=== PATIENT | male | born 1965 | race Caucasian/White ===

== ENCOUNTER 2017-12-19 08:50 | Outpatient (CLI) | payer BC, SELFPAY ==
[2017-12-19 11:51] LABS: ALT 43 U/L (12-78); AST 30 U/L (15-37); Albumin 3.8 g/dL (3.4-5.0); Alkaline Phosphatase 75 U/L (46-116); Anion Gap 7.8 mmol/L (3-11); BUN 13 mg/dL (7-18); Bilirubin, Total 0.6 mg/dL (0.2-1.0); CO2 31.2 mmol/L (21.0-32.0); CREATININE 0.91 mg/dL (0.70-1.30); Calcium 9.1 mg/dL (8.5-10.1); Chloride 104 mmol/L (98-107); Glucose 143 mg/dL (70-100); Magnesium 1.8 mg/dL (1.8-2.4); Potassium 3.9 mmol/L (3.5-5.1); Sodium 143 mmol/L (136-145); Total Protein 6.7 g/dL (6.4-8.2)
[2017-12-19 11:59] LABS: Hemoglobin A1C 6.9 % (4.5-6.2)
== END 2017-12-19 09:10 ==
PROVIDERS: PCP Family Medicine; Visit Provider Family Medicine
DX: E11.9 Type 2 diabetes mellitus without complications (principal); I10 Essential (primary) hypertension; K21.9 Gastro-esophageal reflux disease without esophagitis
CPT/HCPCS: 36415; 80053; 83036; 83735

== ENCOUNTER 2018-02-08 09:31 | Day surgery (SDC) | payer BC, SELFPAY ==
[2018-02-08 09:32] VITALS: BP 156/94; PULSE 74; RESP 16; TEMP 36; O2SAT 97
[2018-02-08] MEDS: Lactated Ringers 1,000 ML 30 ML IV (09:56)
--- NOTE | 2018-02-08 11:25 | BOWEL_PTH ---
PATIENT: Nathan Arroyo LOC: [facility] U#:[id number] AGE/SX: 53/M ROOM: RE02/08/[address]: Arnaud Holly DO : 1965 BED: DIS: 02/08/2018 SPEC #: [id number] RECD: 02/08/18 12:55 STATUS: JOSE RENick #: [id number] CARTER: 02/08/18 11:[address]: Arnaud Holly DEPT: Surgical Specimen RECD BY: Nadine Burch ENTERED: 02/08/18 12:56 SP TYPE: Bowel OTHR DR: Marie Granado MD Tissues: 1 - BIOPSY BOWEL Procedures: GROSS AND MICRO LEVEL 4 Comments: [id number]
--- NOTE | 2018-02-08 11:42 | W.COLOREPORT ---
Date of service: 02/08/18 Time of Service: 11:00 Colonoscopy Report Date of procedure: 02/08/18 Pre-op diagnosis general: Colorectal cancer screening Post-op diagnosis procedure note: other (Rectal polyp) Procedure: Colonoscopy to the cecum with biopsy by cold snare Surgeon: Arnaud Holly Anesthesia proc note operative: MAC (Eric Moralez CRNA; ASA 2 Mallampati class II) Estimated blood loss (mL): 1 Pathology: other Complications: None Disposition: same day Indications: 53-year-old male presenting for colorectal cancer screening. He is been asymptomatic, and has no family history of colorectal cancer. The procedure has been reviewed with him, and all his questions answered to his satisfaction. Consents were obtained to proceed with colonoscopy. Prep: Miralax/Dulcolax Findings: In examining the colon from cecum to the anus, one polyp approximately 1 cm in greatest diameter was identified in the rectum and removed by cold biopsy forceps. No other abnormalities were noted of the colon, rectum, or anorectal junction Procedure Description: The patient was seen in the day surgery waiting area. His identification was confirmed, and procedure checked. He was then brought to the procedure room. Monitoring for telemetry, blood pressure, oxygen saturation, and end tidal CO2 monitoring were applied. An appropriate time out was performed to confirm, identification, allergies, medication, procedure, was performed. Sedation was titrated for affect by the FARM[employer]OPS; Once adequate sedation was achieved, I performed a inspection of the external perineum, and a digitial rectal examination. No significant external abnormalities were noted. On digital rectal examination, there was no blood, no masses, good rectal tone, and a normal prostate. I advanced the colonoscope from the anus to the cecum under direct visualization. The cecum was identified by the ileal-cecal valve, and the appendiceal orifice. The scope was then withdrawn in circumferential manner from the cecum to the rectum. No abnormalites were noted in the colon. The scope was then withdrawn into the rectum, and a single polyp was identified approximately 1 cm in greatest diameter which was subsequently removed by cold snare. The scope was then retroflexed in the rectum and no further abnormalities were noted of the rectum or anorectal junction. The scope was then withdrawn, terminating the procedure. There were no complications during the procedure, and the patient tolerated the procedure well. He was returned to the day surgery recovery area in good condition. Plan: We will await pathology before making further recommendations
[2018-02-08 12:08] VITALS: BP 105/53; PULSE 56; RESP 16; TEMP 35.7; O2SAT 99
--- NOTE | 2018-02-08 12:09 | PDOC.DSDIS_ITS ---
Discharge Plan Disposition Patient Disposition: HOME Condition: Good Discharge Details Reason For Visit: SCREENING Attending Provider: Arnaud Holly Primary Care Provider: Marie Granado Home Meds and New Rx's Prescriptions: Continue lamotrigine 25 mg tablet 50 mg PO DAILY RF: 0 omeprazole magnesium [Prilosec OTC] 20 MG tablet,delayed release (DR/EC) 1 tab PO DAILY Qty: 90 RF: 2 fluticasone 16 GM spray,suspension 2 spry NS DAILY Qty: 1 RF: 4 metformin 500 MG tablet 500 mg PO DAILY Qty: 90 RF: 4 hydrochlorothiazide 25 MG tablet 1 tab PO QAM Qty: 90 RF: 4 Rosuvastatin Calcium 40 MG tablet 40 mg PO DAILY Qty: 90 RF: 4 sertraline [Zoloft] 100 mg tablet 200 mg PO DAILY Qty: 60 RF: 12 levocarnitine HCl (bulk) [[id number]] Powder miscellaneous DAILY RF: 0 Discontinued bisacodyl [Dulcolax (bisacodyl)] 5 mg tablet,delayed release (DR/EC) 5 mg PO ONCE Qty: 4 RF: 0 polyethylene glycol 3350 [Miralax] 17 gram powder in packet 255 gm PO for colonoscopy Qty: 1 RF: 0 Discharge Instructions Instructions: Colonoscopy (DC) Stand Alone Forms: Colonoscopy Post Instructions, [place] (DSU) Activity:: Activity as Tolerated Diet:: As Tolerated Discharge Orders Discharge Orders: Discharge Order (Routine); Ordered 02/08/18 Ordered By: Arnaud Holly DS: Diagnosis Discharge Diagnosis (1) Encounter for colorectal cancer screening: Status: Acute Asessment and Plan: Colonoscopy performed Colonoscopy Report Date of procedure: 02/08/18 Pre-op diagnosis general: Colorectal cancer screening Post-op diagnosis procedure note: other (Rectal polyp) Procedure: Colonoscopy to the cecum with biopsy by cold snare Surgeon: Arnaud Holly Anesthesia proc note operative: MAC (Eric Moralez CRNA; ASA 2 Mallampati class II) Estimated blood loss (mL): 1 Pathology: other Rectal Polyp Complications: None Disposition: same day Indications: 53-year-old male presenting for colorectal cancer screening. He is been asymptomatic, and has no family history of colorectal cancer. The procedure has been reviewed with him, and all his questions answered to his satisfaction. Consents were obtained to proceed with colonoscopy. Prep: Miralax/Dulcolax Findings: In examining the colon from cecum to the anus, one polyp approximately 1 cm in greatest diameter was identified in the rectum and removed by cold biopsy forceps. No other abnormalities were noted of the colon, rectum, or anorectal junction Procedure Description: The patient was seen in the day surgery waiting area. His identification was confirmed, and procedure checked. He was then brought to the procedure room. Monitoring for telemetry, blood pressure, oxygen saturation, and end tidal CO2 monitoring were applied. An appropriate time out was performed to confirm, identification, allergies, medication, procedure, was performed. Sedation was titrated for affect by the TUBING SUPERVISOR; Once adequate sedation was achieved, I performed a inspection of the external perineum, and a digitial rectal examination. No significant external abnormalities were noted. On digital rectal examination, there was no blood, no masses, good rectal tone, and a normal prostate. I advanced the colonoscope from the anus to the cecum under direct visualization. The cecum was identified by the ileal-cecal valve, and the appendiceal orifice. The scope was then withdrawn in circumferential manner from the cecum to the rectum. No abnormalites were noted in the colon. The scope was then withdrawn into the rectum, and a single polyp was identified approximately 1 cm in greatest diameter which was subsequently removed by cold snare. The scope was then retroflexed in the rectum and no further abnormalities were noted of the rectum or anorectal junction. The scope was then withdrawn, terminating the procedure. There were no complications during the procedure, and the patient tolerated the procedure well. He was returned to the day surgery recovery area in good condition. Plan: We will await pathology before making further recommendations
== END 2018-02-08 12:17 | disposition home or self-care (01) ==
PROVIDERS: PCP Family Medicine; Visit Provider Surgery
PROC: 0DJD8ZZ Inspection of Lower Intestinal Tract, Via Natural or Artificial Opening Endoscopic (ICD-10-PCS; CPT 45378; principal; 2018-02-08 10:30)
DX: Z12.11 Encounter for screening for malignant neoplasm of colon (principal); D12.8 Benign neoplasm of rectum; E11.9 Type 2 diabetes mellitus without complications; Z79.84 Long term (current) use of oral hypoglycemic drugs; K21.9 Gastro-esophageal reflux disease without esophagitis; I10 Essential (primary) hypertension
CPT/HCPCS: 45385; 88305

== ENCOUNTER 2018-02-28 23:47 | Inpatient (IN) | payer BC, SELFPAY ==
[2018-02-28 23:54] VITALS: O2SAT 99
[2018-02-28 23:56] VITALS: BP 143/92; PULSE 68; RESP 18; TEMP 34.7; O2SAT 99
[2018-03-01] VITALS (90 sets, daily range): BP systolic 86–153; BP diastolic 45–79; PULSE 61–82; RESP 8–28; TEMP 35.3–37.1; O2SAT 88–100
--- NOTE | 2018-03-01 00:10 | W.ED.GENAD ---
Discharge Plan Disposition Patient Disposition: [facility] INPATIENT Condition: Good Discharge Details Chief Complaint: Dizzy/Sync Clinical Impression: Hypotension, Hypothermia, Lactic acidosis Reason For Visit: CLARITZA Primary Care Provider: Marie Granado ED Provider: Car Mcdonald [place] Meds and New Rx's Prescriptions: No Action lamotrigine 25 mg tablet 50 mg PO DAILY RF: 0 levomefolate calcium [L-Methylfolate] 15 mg tablet 15 mg PO DAILY RF: 0 omeprazole magnesium [Prilosec OTC] 20 MG tablet,delayed release (DR/EC) 1 tab PO DAILY Qty: 90 RF: 2 fluticasone 16 GM spray,suspension 2 spry NS DAILY Qty: 1 RF: 4 metformin 500 MG tablet 500 mg PO DAILY Qty: 90 RF: 4 hydrochlorothiazide 25 MG tablet 1 tab PO QAM Qty: 90 RF: 4 Rosuvastatin Calcium 40 MG tablet 40 mg PO DAILY Qty: 90 RF: 4 sertraline [Zoloft] 100 mg tablet 200 mg PO DAILY Qty: 60 RF: 12 Medical Decision Making Patient arrives here hypothermic. Saturations are normal. Blood pressure initially reported as in the 90s now in the 140 range. He has a nonfocal neurologic exam. He has no complaints of pain. He started having shakes here. Given his low blood pressure and low temperature with feeling of dizziness and weakness for most of his shift I am suspecting sepsis. Second line was started here. We will give him a liter of saline and then switch him to LR. Blood cultures, lactic acid, laboratory studies including troponin ordered. Chest x-ray and urinalysis ordered. EKG obtained. Patient's laboratory studies show a white count of 12 with no shift. Chemistry significant for potassium was 3.1 and a magnesium of 1.7, both of which were replenished intravenously. Lactic acid was elevated to 5. Anion gap elevated to 15.5. Glucose a little elevated at 238. Troponin negative. Chest x-ray negative. Blood cultures are done. Urine just obtained and a gram of ceftriaxone given. He has not had any further hypotensive events. His temperatures come up to 97.6. Case discussed with hospitalist for admission. He is hemodynamically stable. I am continuing him on fluids. Ceftriaxone is ordered. Currently stable. Lab Data Lab results reviewed: Yes I reviewed the patient's lab results. ECG Data Attestation: I personally reviewed and interpreted this ECG (s) as follows: Interpretation: Normal sinus rhythm at 67. Normal axis and intervals. Normal ST segments. HPI General Mode of arrival: EMS. Date/Time Provider Initiated Documentation: 03/01/18 00:10. Limitations to Documentation: no limitations. Information obtained by: patient and EMS. 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 He abruptly became dizzy at the station and went into the bathroom where he proceeded to vomit multiple times. He did not pass out. He is extremely diaphoretic and weak. He has no headache, neck pain, chest pain, chest heaviness, abdominal pain. He has no cough, runny nose, body aches. He has no shortness of breath. While he did describe dizziness/vertigo he was able to ambulate. He had no neurologic symptoms. He no longer feels dizzy. His colleagues started an IV because he was hypotensive. He received some oral Zofran. He was transported here for further evaluation. Related Data Home Medications Medication Instructions Recorded Confirmed omeprazole magnesium [Prilosec OTC] 1 tab PO DAILY #90 tab-cap 07/20/16 02/20/18 fluticasone 2 spry NS DAILY #1 script 06/20/17 02/20/18 metformin 500 mg PO DAILY #90 tab-cap 09/11/17 02/20/18 hydrochlorothiazide 1 tab PO QAM #90 tab 10/03/17 02/20/18 sertraline 100 mg tablet 200 mg PO DAILY #60 tab-cap 11/28/17 02/20/18 lamotrigine 25 mg tablet 50 mg PO DAILY tab 01/23/18 02/20/18 levomefolate calcium 15 mg tablet 15 mg PO DAILY 02/20/18 02/20/18 Previous Rx's Medication Instructions Recorded fluticasone 2 spry NS DAILY #1 script 06/20/17 metformin 500 mg PO DAILY #90 tab-cap 09/11/17 hydrochlorothiazide 1 tab PO QAM #90 tab 10/03/17 sertraline 100 mg tablet 200 mg PO DAILY #60 tab-cap 11/28/17 Allergies Allergy/AdvReac Type Severity Reaction Status Date / Time No Known Allergies Allergy Verified 03/01/18 00:01 General Stated Complaint: Dizzy/Sync VAUGHN: 2 Review of Systems Constitutional Denies chills, Reports excessive sweating, Denies fatigue, Denies fever(s), Denies headache(s), Denies lethargy, Reports malaise and Reports weakness Eyes Denies change in vision, Denies diplopia and Denies loss of vision ENT Reports dizziness, Denies otalgia, Denies headache(s), Denies nasal congestion, Denies nasal discharge, Denies neck pain, Denies sinus pain, Denies sinus pressure and Denies sore throat Cardiovascular Denies chest pain, Reports diaphoresis, Denies syncope, Denies rapid heart rate, Denies edema, Denies leg edema, Reports lightheadedness and Denies dyspnea Respiratory Denies cough and Denies dyspnea Gastrointestinal Denies abdominal pain, Denies hematochezia, Denies diarrhea, Reports nausea, Reports vomiting and Denies hematemesis Genitourinary Denies hematuria, Denies dysuria and Denies flank pain Musculoskeletal Denies back pain, Denies myalgias, Denies arthralgias, Denies neck pain and Denies numbness Integumentary/Breasts Denies erythema, Denies rash and Denies wounds Neurologic Denies abnormal speech, Denies confusion, Reports dizziness, Denies syncope, Denies headache(s), Denies focal weakness, Denies loss of vision, Denies numbness, Denies paresthesias and Reports weakness Psychiatric Denies confusion Endocrine Reports excessive sweating and Denies fatigue [facility] Medical History Tubular adenoma of colon (Resolved) Depression (Chronic) DM (diabetes mellitus) Essential hypertension GERD (gastroesophageal reflux disease) Surgical History H/O colonoscopy (Resolved 02/08/18) Endoscopic Ethmoid (A&P) (~2003) Vasectomy Family History Mother Personal history of malignant neoplasm Mental disorder Father Diabetes Essential hypertension Personal history of malignant neoplasm Heart disease Hyperlipidemia Stroke Sister No problems noted. 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 pets and animals: cat(s) Smoking/Tobacco Use Status: Former Tobacco Use quit date: 03/12/87 passive smoking exposure: No alcohol intake: current alcohol intake frequency: 0-2 drinks per day Exam Const General: cooperative, no acute distress and ill appearing Orientation: alert and oriented x3 HENMT Head: normocephalic and atraumatic Mouth: moist mucous membranes Eyes Conjunctivae: conjunctivae normal Neck Neck: trachea midline and supple Resp Effort & Inspection: normal respiratory effort Auscultation: clear to auscultation bilaterally Cardio Rate: regular rate Rhythm: regular rhythm Heart Sounds: S1 normal and S2 normal GI Palpation: soft, not firm, no guarding and nontender Skin General skin exam: no rashes or lesions noted and no erythema Neuro General: alert, awake, oriented x3, no focal motor deficits and CN's II-XI intact bilaterally Extrem General: normal to inspection and no clubbing, cyanosis or edema Course Vital Signs Temperature 94.5 F L 02/28/18 23:56 Pulse 68 02/28/18 23:56 Respiratory Rate 18 02/28/18 23:56 Blood Pressure 143/92 H 02/28/18 23:56 Pulse Oximetry 99 02/28/18 23:56 Temperature 94.5 F L 02/28/18 23:56 Temperature Source Oral 02/28/18 23:56 Pulse 68 02/28/18 23:56 Respiratory Rate 18 03/01/18 00:02 Respiratory Effort Non-Labored 03/01/18 00:02 Respiratory Depth Normal 03/01/18 00:02 Respiratory Pattern Normal 03/01/18 00:02 Blood Pressure 143/92 H 02/28/18 23:56 Blood Pressure Position Sitting 02/28/18 23:56 Pulse Oximetry 99 02/28/18 23:56 Oxygen Delivery Method Room Air 02/28/18 23:56 Oxygen Flow Rate 0 02/28/18 23:56 Pain Level 0 02/28/18 23:56 Lab/Test Results Lab/Test Results: 03/01/18 00:04 Blood Blood Culture - Pending 03/01/18 00:04 Blood Blood Culture - Pending
[2018-03-01] MEDS: Normal Saline 1,000 ML 1000 ML IV (00:14)
[2018-03-01] MEDS: Normal Saline Flush 10 ML SYR IVP (00:15)
[2018-03-01 00:19] LABS: Lactate-non-spesis 4.9 mmol/L (0.6-1.4)
[2018-03-01 00:21] LABS: Abs Immature Grans 0.05 k/cumm (0.0-0.09); Absolute Basophil Count 0.02 k/cumm (0.0-0.2); Absolute Eosinophil Count 0.07 k/cumm (0.0-0.7); Absolute Lymphocyte Count 1.54 k/cumm (1.2-3.4); Absolute Monocyte Count 0.86 k/cumm (0.11-0.7); Absolute Neutrophil Count 9.24 k/cumm (1.2-6.7); Basophils % 0.2; Eosinophils % 0.6; HCT 43.8 % (40.0-50.0); HGB 15.1 g/dL (13.5-17.5); Immature Grans % 0.4; Lymphocytes % 13.1; Mean Corp. HGB Concentration 34.5 g/dL (32.0-36.0); Mean Corpuscular Volume 84.2 fL (80-95); Mean Platelet Volume 10.5 fL (8.0-11.0); Monocytes % 7.3; Neutrophils % 78.4; Platelet Count 211 x1000/uL (130-400); RBC Distribution Width 13.1 % (11.8-14.1); White Blood Cell Count 11.78 k/cumm (4.4-10.8)
--- NOTE | 2018-03-01 00:24 | ED.GENADUL_ITS ---
Discharge Plan Disposition Patient Disposition: [facility] INPATIENT Condition: Good Discharge Details Chief Complaint: Dizzy/Sync Clinical Impression: Hypotension, Hypothermia, Lactic acidosis Reason For Visit: CLARITZA Primary Care Provider: Marie Granado ED Provider: Car Mcdonald [place] Meds and New Rx's Prescriptions: No Action lamotrigine 25 mg tablet 50 mg PO DAILY RF: 0 levomefolate calcium [L-Methylfolate] 15 mg tablet 15 mg PO DAILY RF: 0 omeprazole magnesium [Prilosec OTC] 20 MG tablet,delayed release (DR/EC) 1 tab PO DAILY Qty: 90 RF: 2 fluticasone 16 GM spray,suspension 2 spry NS DAILY Qty: 1 RF: 4 metformin 500 MG tablet 500 mg PO DAILY Qty: 90 RF: 4 hydrochlorothiazide 25 MG tablet 1 tab PO QAM Qty: 90 RF: 4 Rosuvastatin Calcium 40 MG tablet 40 mg PO DAILY Qty: 90 RF: 4 sertraline [Zoloft] 100 mg tablet 200 mg PO DAILY Qty: 60 RF: 12 Medical Decision Making Patient arrives here hypothermic. Saturations are normal. Blood pressure initially reported as in the 90s now in the 140 range. He has a nonfocal neurologic exam. He has no complaints of pain. He started having shakes here. Given his low blood pressure and low temperature with feeling of dizziness and weakness for most of his shift I am suspecting sepsis. Second line was started here. We will give him a liter of saline and then switch him to LR. Blood cultures, lactic acid, laboratory studies including troponin ordered. Chest x- ray and urinalysis ordered. EKG obtained. Patient's laboratory studies show a white count of 12 with no shift. Chemistry significant for potassium was 3.1 and a magnesium of 1.7, both of which were replenished intravenously. Lactic acid was elevated to 5. Anion gap elevated to 15.5. Glucose a little elevated at 238. Troponin negative. Chest x-ray negative. Blood cultures are done. Urine just obtained and a gram of ceftriaxone given. He has not had any further hypotensive events. His temperatures come up to 97.6. Case discussed with hospitalist for admission. He is hemodynamically stable. I am continuing him on fluids. Ceftriaxone is ordered. Currently stable. Lab Data Lab results reviewed: Yes I reviewed the patient's lab results. ECG Data Attestation: I personally reviewed and interpreted this ECG (s) as follows: Interpretation: Normal sinus rhythm at 67. Normal axis and intervals. Normal ST segments. HPI General Mode of arrival: EMS . Date/Time Provider Initiated Documentation: 03/01/18 00:10 . Limitations to Documentation: no limitations . Information obtained by: patient and EMS . 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 He abruptly became dizzy at the station and went into the bathroom where he proceeded to vomit multiple times. He did not pass out. He is extremely diaphoretic and weak. He has no headache, neck pain, chest pain, chest heaviness, abdominal pain. He has no cough, runny nose, body aches. He has no shortness of breath. While he did describe dizziness/vertigo he was able to ambulate. He had no neurologic symptoms. He no longer feels dizzy. His colleagues started an IV because he was hypotensive. He received some oral Zofran. He was transported here for further evaluation. Related Data Home Medications Medication Instructions Recorded Confirmed omeprazole magnesium [Prilosec OTC] 1 tab PO DAILY #90 tab-cap 07/20/16 02/20/18 fluticasone 2 spry NS DAILY #1 script 06/20/17 02/20/18 metformin 500 mg PO DAILY #90 tab-cap 09/11/17 02/20/18 hydrochlorothiazide 1 tab PO QAM #90 tab 10/03/17 02/20/18 sertraline 100 mg tablet 200 mg PO DAILY #60 tab-cap 11/28/17 02/20/18 lamotrigine 25 mg tablet 50 mg PO DAILY tab 01/23/18 02/20/18 levomefolate calcium 15 mg tablet 15 mg PO DAILY 02/20/18 02/20/18 Previous Rx's Medication Instructions Recorded fluticasone 2 spry NS DAILY #1 script 06/20/17 metformin 500 mg PO DAILY #90 tab-cap 09/11/17 hydrochlorothiazide 1 tab PO QAM #90 tab 10/03/17 sertraline 100 mg tablet 200 mg PO DAILY #60 tab-cap 11/28/17 Allergies Allergy/AdvReac Type Severity Reaction Status Date / Time No Known Allergies Allergy Verified 03/01/18 00:01 General Stated Complaint: Dizzy/Sync VAUGHN: 2 Review of Systems Constitutional Denies chills, Reports excessive sweating, Denies fatigue, Denies fever(s), Denies headache(s), Denies lethargy, Reports malaise and Reports weakness Eyes Denies change in vision, Denies diplopia and Denies loss of vision ENT Reports dizziness, Denies otalgia, Denies headache(s), Denies nasal congestion, Denies nasal discharge, Denies neck pain, Denies sinus pain, Denies sinus pressure and Denies sore throat Cardiovascular Denies chest pain, Reports diaphoresis, Denies syncope, Denies rapid heart rate, Denies edema, Denies leg edema, Reports lightheadedness and Denies dyspnea Respiratory Denies cough and Denies dyspnea Gastrointestinal Denies abdominal pain, Denies hematochezia, Denies diarrhea, Reports nausea, Reports vomiting and Denies hematemesis Genitourinary Denies hematuria, Denies dysuria and Denies flank pain Musculoskeletal Denies back pain, Denies myalgias, Denies arthralgias, Denies neck pain and Denies numbness Integumentary/Breasts Denies erythema, Denies rash and Denies wounds Neurologic Denies abnormal speech, Denies confusion, Reports dizziness, Denies syncope, Den ies headache(s), Denies focal weakness, Denies loss of vision, Denies numbness, Denies paresthesias and Reports weakness Psychiatric Denies confusion Endocrine Reports excessive sweating and Denies fatigue [facility] Medical History Tubular adenoma of colon (Resolved) Depression (Chronic) DM (diabetes mellitus) Essential hypertension GERD (gastroesophageal reflux disease) Surgical History H/O colonoscopy (Resolved 02/08/18) Endoscopic Ethmoid (A&P) (~2003) Vasectomy Family History Mother Personal history of malignant neoplasm Mental disorder Father Diabetes Essential hypertension Personal history of malignant neoplasm Heart disease Hyperlipidemia Stroke Sister No problems noted. 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 pets and animals: cat(s) Smoking/Tobacco Use Status: Former Tobacco Use quit date: 03/12/87 passive smoking exposure: No alcohol intake: current alcohol intake frequency: 0-2 drinks per day Exam Const General: cooperative, no acute distress and ill appearing Orientation: alert and oriented x3 HENMT Head: normocephalic and atraumatic Mouth: moist mucous membranes Eyes Conjunctivae: conjunctivae normal Neck Neck: trachea midline and supple Resp Effort & Inspection: normal respiratory effort Auscultation: clear to auscultation bilaterally Cardio Rate: regular rate Rhythm: regular rhythm Heart Sounds: S1 normal and S2 normal GI Palpation: soft, not firm, no guarding and nontender Skin General skin exam: no rashes or lesions noted and no erythema Neuro General: alert, awake, oriented x3, no focal motor deficits and CN's II-XI intact bilaterally Extrem General: normal to inspection and no clubbing, cyanosis or edema Course Vital Signs Temperature 94.5 F L 02/28/18 23:56 Pulse 68 02/28/18 23:56 Respiratory Rate 18 02/28/18 23:56 Blood Pressure 143/92 H 02/28/18 23:56 Pulse Oximetry 99 02/28/18 23:56 Temperature 94.5 F L 02/28/18 23:56 Temperature Source Oral 02/28/18 23:56 Pulse 68 02/28/18 23:56 Respiratory Rate 18 03/01/18 00:02 Respiratory Effort Non-Labored 03/01/18 00:02 Respiratory Depth Normal 03/01/18 00:02 Respiratory Pattern Normal 03/01/18 00:02 Blood Pressure 143/92 H 02/28/18 23:56 Blood Pressure Position Sitting 02/28/18 23:56 Pulse Oximetry 99 02/28/18 23:56 Oxygen Delivery Method Room Air 02/28/18 23:56 Oxygen Flow Rate 0 02/28/18 23:56 Pain Level 0 02/28/18 23:56 Lab/Test Results Lab/Test Results: 03/01/18 00:04 Blood Blood Culture - Pending 03/01/18 00:04 Blood Blood Culture - Pending
--- NOTE | 2018-03-01 00:35 | DI.RAD_ITS ---
SYMPTOM/DIAGNOSIS: WEAKNESS PA AND LATERAL CHEST: The lungs are well expanded and free of infiltrate. No pleural effusion. The heart is not enlarged. The hilar structures, mediastinum and tracheal air column are clear. SUMMARY: No evidence of acute cardiopulmonary disease.
[2018-03-01 00:39] LABS: ALT 53 U/L (12-78); AST 34 U/L (15-37); Albumin 4.4 g/dL (3.4-5.0); Alkaline Phosphatase 87 U/L (46-116); Anion Gap 15.5 mmol/L (3-11); BUN 17 mg/dL (7-18); Bilirubin, Total 0.6 mg/dL (0.2-1.0); CO2 25.5 mmol/L (21.0-32.0); CREATININE 1.24 mg/dL (0.70-1.30); Calcium 9.5 mg/dL (8.5-10.1); Chloride 100 mmol/L (98-107); Glucose 238 mg/dL (70-100); Magnesium 1.7 mg/dL (1.8-2.4); Potassium 3.1 mmol/L (3.5-5.1); Sodium 141 mmol/L (136-145); Total Protein 7.7 g/dL (6.4-8.2)
[2018-03-01 00:44] LABS: Troponin I < 0.02 ng/mL (0.00-0.06)
[2018-03-01] MEDS: Lactated Ringers 1,000 ML 200 ML IV (00:53)
--- NOTE | 2018-03-01 01:00 | DI.VRAD_ITS ---
EXAM: XR Chest, 2 Views EXAM DATE/TIME: 03/01/2018 12:09 AM CLINICAL HISTORY: 53 years old, male; Signs and symptoms; Other: Weakness, dizzy TECHNIQUE: XR of the chest, 2 views. COMPARISON: No relevant prior studies available. FINDINGS: Lungs: Low lung volumes. No airspace consolidation. Pleural space: No pleural effusion. No pneumothorax. Heart/Mediastinum: No cardiomegaly. Bones/joints: No acute fracture. IMPRESSION: No acute cardiopulmonary pathology. Dictated and Authenticated by: Fany Landeros MD. Ordering:RAYRAY Yoon MD
[2018-03-01] MEDS: MAGNESIUM SULFATE 2 GM/50 ML BAG IVPB (02:03)
[2018-03-01] MEDS: POTASSIUM CHLORIDE 10 MEQ/100 ML BAG 100 MEQ IVPB (02:04)
[2018-03-01 02:45] LABS: Bilirubin Negative (Negative); Blood Negative (Negative); Clarity Clear; Glucose 250 mg/dL (Negative); Ketones 40 mg/dL (Negative); Leukocyte Esterase Negative (Negative); Nitrite Negative (Negative); Specific Gravity 1.025 (1.005-1.025); Urobilinogen 0.2 EU/dL (Up TO 0.2)
--- NOTE | 2018-03-01 03:25 | W.PM.HP.N ---
Date of service: 03/01/18 Time of Service: 03:25 Assessment and Plan (1) Dizziness: Current visit: Yes Status: Acute Constellation of symptoms that include sudden onset vertigo, nausea with vomiting, and overall malaise in patient found to be hypothermic and hypotensive, with significant elevation in lactate. Possibility does exist for potential Sirs/sepsis, albeit without a known source currently. Chest x-ray and urinalysis both appeared to be without acute infectious pathology, and the patient has no localizing symptoms by history or physical exam. He has received aggressive IV fluids and a dose of ceftriaxone in the emergency department. For now will hold antibiotic therapy and monitor patient's symptoms, vitals, and culture results very closely. Mr. Arroyo also has evidence of a significant elevation in lactate, as well as an elevated anion gap, but with a normal chloride, bicarb, and sodium levels. While his glucose is elevated it is not grossly so. His urine does show mild elevation in ketones. For now continue aggressive fluid resuscitation, check ABG, and repeat morning labs. Maintain on sliding scale insulin coverage. EKG also checked and does not appear to be ischemic, with a negative troponin which will be repeated in the morning as well. Please note that the patient is also on metformin, and while technically possible to develop lactic acidosis from metformin it is highly unlikely as he is on a very low dose of this medication, and has no concurrent impairment in liver or renal function, or significant alcohol abuse by history. Regardless, metformin will be held as well. (2) Type 2 diabetes mellitus without complication, without long-term current use of insulin: Current visit: No Status: Chronic Hold metformin, initiate sliding scale coverage, ADA diet. (3) Hypercholesterolemia: Current visit: No Status: Chronic Continue home statin therapy. (4) Gastroesophageal reflux disease with esophagitis: Current visit: No Status: Chronic Continue PPI therapy. (5) DVT prophylaxis: Current visit: Yes Status: Acute SC Lovenox. History of Present Illness Chief Complaint: Dizziness Narrative: 53-year-old gentleman with a past medical history significant for diabetes presents to [facility] emergency department with complaints of dizziness. Mr. Arroyo has a prior medical history significant for diabetes, hypertension, dyslipidemia, GERD, and depression. 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 He reports that approximately 9 PM he had rather acute onset of malaise, with symptoms that included vertigo, nausea, and vomiting. He was noted to be ill-appearing as he was in the emergency department earlier, having just transported a patient there. He later presented for evaluation as he was feeling worse, and was again found to be rather ill appearing with pallor and rigors. Further evaluation noted hypothermia, and although not recorded he also reportedly had low blood pressures that responded to IV fluids. Lab work showed a mild leukocytosis without any bandemia, but with a significant elevation in his lactate at 4.9. His chest x-ray, urinalysis, and remainder of his lab work were essentially unremarkable. Given patient's hypothermia, hypotension, and markedly elevated lactate he was referred for admission for further evaluation and treatment. Review of Systems Review of Systems All systems reviewed & are unremarkable except as noted in HPI and below and Unobtainable due to (Specifically denies any fevers, chills, dysuria, urinary frequency, pyuria,) [facility] Medical History Tubular adenoma of colon (Chronic) Depression (Chronic) DM (diabetes mellitus) Essential hypertension GERD (gastroesophageal reflux disease) Surgical History H/O colonoscopy (Resolved 02/08/18) Endoscopic Ethmoid (A&P) (~2003) Vasectomy Family History Mother Personal history of malignant neoplasm Mental disorder Father Diabetes Essential hypertension Personal history of malignant neoplasm Heart disease Hyperlipidemia Stroke Sister No problems noted. 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 Quit tobacco 21 years ago. Reports 2 drinks approximately 3 times per week. Denies any illicit drug use. Meds Home Medications Medication Instructions Recorded Confirmed Type omeprazole magnesium [Prilosec OTC] 1 tab PO DAILY #90 tab-cap 07/20/16 02/20/18 History fluticasone 2 spry NS DAILY #1 script 06/20/17 02/20/18 Rx metformin 500 mg PO DAILY #90 tab-cap 09/11/17 02/20/18 Rx Rosuvastatin Calcium 40 mg PO DAILY #90 tab-cap 10/03/17 02/20/18 Clinic hydrochlorothiazide 1 tab PO QAM #90 tab 10/03/17 02/20/18 Rx sertraline 100 mg tablet 200 mg PO DAILY #60 tab-cap 11/28/17 02/20/18 Rx lamotrigine 25 mg tablet 50 mg PO DAILY tab 01/23/18 02/20/18 History levomefolate calcium 15 mg tablet 15 mg PO DAILY 02/20/18 02/20/18 History Allergies Allergy/AdvReac Type Severity Reaction Status Date / Time No Known Allergies Allergy Verified 03/01/18 03:25 Exam Narrative Exam Narrative: General: Patient is ill appearing but not toxic - apparently improved since presentation, AAOX3, NAD Neck: Supple CV: Regular, nontachycardic, S1S2, No rubs, murmurs, or gallops. Pulmonary: Clear to auscultation bilaterally, no crackles, wheezing, or rhonchi Abdomen: + Bowel Sounds, soft, nontender, nondistended Vascular: No lower extremity edema Neurologic: CN II-XII grossly intact. No focal deficits. Psych: Normal mood and affect. Results Imaging Additional studies: Exam(s) EXAM: XR Chest, 2 Views EXAM DATE/TIME: 03/01/2018 12:09 AM CLINICAL HISTORY: 53 years old, male; Signs and symptoms; Other: Weakness, dizzy TECHNIQUE: XR of the chest, 2 views. COMPARISON: No relevant prior studies available. FINDINGS: Lungs: Low lung volumes. No airspace consolidation. Pleural space: No pleural effusion. No pneumothorax. Heart/Mediastinum: No cardiomegaly. Bones/joints: No acute fracture. IMPRESSION: No acute cardiopulmonary pathology. Labs : 03/01/18 00:10 03/01/18 00:10 Laboratory Results - last 24 hr 03/01/18 03/01/18 03/01/18 00:10 00:10 00:10 WBC 11.78 H RBC 5.20 Hgb 15.1 Hct 43.8 MCV 84.2 MCH 29.0 MCHC 34.5 RDW 13.1 Plt Count 211 MPV 10.5 Immature Gran % 0.4 Neutrophils % 78.4 Lymphocytes % 13.1 Monocytes % 7.3 Eosinophils % 0.6 Basophils % 0.2 Absolute Neutrophils 9.24 H Absolute Lymphocytes 1.54 Absolute Monocytes 0.86 H Absolute Eosinophils 0.07 Absolute Basophils 0.02 Sodium 141 Potassium 3.1 L Chloride 100 Carbon Dioxide 25.5 Anion Gap 15.5 H BUN 17 Creatinine 1.24 Estimated GFR/1.73 m2 >= 60.00 Glucose 238 H Lactate 4.9 H Calcium 9.5 Magnesium 1.7 L Total Bilirubin 0.6 AST 34 ALT 53 Alkaline Phosphatase 87 Troponin I < 0.02 Total Protein 7.7 Albumin 4.4 Urine Color Urine Clarity Urine pH Ur Specific [place] Urine Protein Urine Ketones Urine Blood Urine Nitrite Urine Bilirubin Urine Urobilinogen Ur Leukocyte Esterase Urine Glucose 03/01/18 02:30 WBC RBC Hgb Hct MCV MCH MCHC RDW Plt Count MPV Immature Gran % Neutrophils % Lymphocytes % Monocytes % Eosinophils % Basophils % Absolute Neutrophils Absolute Lymphocytes Absolute Monocytes Absolute Eosinophils Absolute Basophils Sodium Potassium Chloride Carbon Dioxide Anion Gap BUN Creatinine Estimated GFR/1.73 m2 Glucose Lactate Calcium Magnesium Total Bilirubin AST ALT Alkaline Phosphatase Troponin I Total Protein Albumin Urine Color Yellow Urine Clarity Clear Urine pH 6.0 Ur Specific [place] 1.025 Urine Protein Negative Urine Ketones 40 H Urine Blood Negative Urine Nitrite Negative Urine Bilirubin Negative Urine Urobilinogen 0.2 Ur Leukocyte Esterase Negative Urine Glucose 250 H Last Vital Signs Temp 34.7 C L 02/28/18 23:56 Pulse 68 02/28/18 23:56 Resp 18 03/01/18 00:02 BP 143/92 H 02/28/18 23:56 Pulse Ox 99 02/28/18 23:56
[2018-03-01] MEDS: Normal Saline 1,000 ML 200 ML IV ×2 (05:00→09:49)
[2018-03-01] MEDS: Magnesium Oxide 400 MG TAB PO (05:20)
[2018-03-01] MEDS: Potassium Chloride 20 MEQ TABCR 40 MEQ PO (05:21)
[2018-03-01] MEDS: Enoxaparin 40 MG/0.4 ML SYR SC (05:21)
[2018-03-01 06:46] LABS: Lactate-non-spesis 1.7 mmol/L (0.6-1.4)
[2018-03-01 06:50] LABS: Abs Immature Grans 0.03 k/cumm (0.0-0.09); Absolute Basophil Count 0.04 k/cumm (0.0-0.2); Absolute Eosinophil Count 0.01 k/cumm (0.0-0.7); Absolute Lymphocyte Count 1.13 k/cumm (1.2-3.4); Absolute Monocyte Count 0.83 k/cumm (0.11-0.7); Absolute Neutrophil Count 7.81 k/cumm (1.2-6.7); Basophils % 0.4; Eosinophils % 0.1; HCT 38.5 % (40.0-50.0); HGB 13.3 g/dL (13.5-17.5); Immature Grans % 0.3; Lymphocytes % 11.5; Mean Corp. HGB Concentration 34.5 g/dL (32.0-36.0); Mean Corpuscular Hemoglobin 29.2 pg (27.0-33.0); Mean Corpuscular Volume 84.6 fL (80-95); Mean Platelet Volume 10.4 fL (8.0-11.0); Monocytes % 8.4; Neutrophils % 79.3; Platelet Count 190 x1000/uL (130-400); RBC 4.55 m/cumm (4.50-6.00); RBC Distribution Width 13.3 % (11.8-14.1); White Blood Cell Count 9.85 k/cumm (4.4-10.8)
[2018-03-01 07:08] LABS: Anion Gap 7.8 mmol/L (3-11); BUN 13 mg/dL (7-18); CO2 29.2 mmol/L (21.0-32.0); CREATININE 0.91 mg/dL (0.70-1.30); Calcium 8.2 mg/dL (8.5-10.1); Chloride 104 mmol/L (98-107); Glucose 155 mg/dL (70-100); Potassium 3.7 mmol/L (3.5-5.1); Sodium 141 mmol/L (136-145)
[2018-03-01 07:12] LABS: Troponin I < 0.02 ng/mL (0.00-0.06)
[2018-03-01] MEDS: Omeprazole 20 MG CAPCR PO (08:05)
[2018-03-01] MEDS: lamoTRIgine 25 MG TAB 50 MG PO (09:17)
[2018-03-01] MEDS: Sertraline 50 MG TAB 200 MG PO (09:17)
[2018-03-01] MEDS: Insulin Aspart 300 UNITS/3 ML PEN SC (12:23)
--- NOTE | 2018-03-01 12:42 | PDOC.CMIN ---
- If Service Date Differs Date of service: 03/01/18 Time of Service: 12:42 Care Management Initial Assess REASON FOR HOSPITALIZATION:: Dizziness PAST MEDICAL HISTORY/PAST SURGICAL HISTORY:: Tublar adenoma of the colon, type 2 DM, low back pain, hyperchoesterolemia, GERD, HTN, Depression PREVIOUS FUNCTIONAL STATUS/SOCIAL/FAMILY SUPPORTS:: Nathan lives at home independently in [place], [place]. He is seperated from his spouse they do live in the same home. Nathan works fulltime at [employer]. His children are grown and supportive per his report. He states he is independent with ADL's and transportation. He has many hobbies he likes to do around home. CURRENT FUNCTIONAL STATUS:: Nathan is alert and engaged. He is able to recall events that led to admission. He reports that he is a DM he does not check it blood sugar at home he does have his A1c per his report checked every 3 months. ADVANCE DIRECTIVES:: None on file at [facility] offered packet Has patient been provided with information about the portal?: Yes Did the patient sign up for the portal?: No CODE STATUS:: Full Code INSURANCE COVERAGE / FINANCIAL ISSUES:: BCBS CURRENT HOME/COMMUNITY SERVICES/EQUIPMENT:: None at this time PRIMARY CARE PHYSICIAN:: POTENTIAL DISCHARGE NEEDS:: Follow up appointment with primary care provider scheduled prior to discharge PATIENT/FAMILY EDUCATION NEEDS:: Discharge plan of care, limitations and follow up plan of care including ask me three and self management. CM provided education realated to DM and follow up with primary care r/t ongoing DM management. ANTICIPATED BARRIERS TO DISCHARGE:: None identified at this time. TRANSPORTATION:: Via private car wtih his daughter at time of discharge. PLAN:: Nathan will be discharged home when medically ready per provider. Anticipate no addtional services at time of discharge. CM to continue to provide support to patient discharge planning.
--- NOTE | 2018-03-01 12:52 | INITIAL_ITS ---
- If Service Date Differs Date of service: 03/01/18 Time of Service: 12:42 Care Management Initial Assess REASON FOR HOSPITALIZATION:: Dizziness PAST MEDICAL HISTORY/PAST SURGICAL HISTORY:: Tublar adenoma of the colon, type 2 DM, low back pain, hyperchoesterolemia, GERD, HTN, Depression PREVIOUS FUNCTIONAL STATUS/SOCIAL/FAMILY SUPPORTS:: Nathan lives at home independently in [place], [place]. He is seperated from his spouse they do live in the same home. Nathan works fulltime at [employer]. His children are grown and supportive per his report. He states he is independent with ADL's and transportation. He has many hobbies he likes to do around home. CURRENT FUNCTIONAL STATUS:: Nathan is alert and engaged. He is able to recall events that led to admission. He reports that he is a DM he does not check it blood sugar at home he does have his A1c per his report checked every 3 months. ADVANCE DIRECTIVES:: None on file at [facility] offered packet Has patient been provided with information about the portal?: Yes Did the patient sign up for the portal?: No CODE STATUS:: Full Code INSURANCE COVERAGE / FINANCIAL ISSUES:: BCBS CURRENT HOME/COMMUNITY SERVICES/EQUIPMENT:: None at this time PRIMARY CARE PHYSICIAN:: POTENTIAL DISCHARGE NEEDS:: Follow up appointment with primary care provider scheduled prior to discharge PATIENT/FAMILY EDUCATION NEEDS:: Discharge plan of care, limitations and follow up plan of care including ask me three and self management. CM provided education realated to DM and follow up with primary care r/t ongoing DM management. ANTICIPATED BARRIERS TO DISCHARGE:: None identified at this time. TRANSPORTATION:: Via private car wtih his daughter at time of discharge. PLAN:: Nathan will be discharged home when medically ready per provider. Anticipate no addtional services at time of discharge. CM to continue to provide support to patient discharge planning.
--- NOTE | 2018-03-01 14:58 | W.PM.DS.N ---
Date of service: 03/01/18 Time of Service: 15:06 DS: Diagnosis Discharge Diagnosis (1) Vomiting and diarrhea: Status: Resolved Asessment and Plan: Etiology not identified. No positive cultures thus far. No indication of acute coronary syndrome. History and exam do not suggest bowel obstruction. No ongoing diarrhea to suggest gastroenteritis. Did not recur after he left the emergency room and no exacerbations with resumption of regular diet. (2) Lactic acidosis: Status: Resolved Asessment and Plan: Resolved with IV hydration and time. No indication of any acute coronary syndrome, no focus of infection found although blood culture results are still pending. The acuity of onset and resolution speaks against metformin induced lactic acidosis. (3) Dizziness: Status: Resolved Asessment and Plan: The acute presentation of all his complaints suggestive of a systemic inflammatory response. However, the very prompt resolution of symptoms with hydration and absence of any recurrence suggest that this may may have been vagal with his episodes of vomiting and diarrhea. No recurrence with IV hydration. No symptoms or signs of a neurologic event. No symptomatic low blood pressure. No indication of acute coronary syndrome. (4) Type 2 diabetes mellitus without complication, without long-term current use of insulin: Status: Chronic Asessment and Plan: Blood sugar slightly elevated, metformin held during his time in the hospital and will be resumed following discharge. (5) Hypercholesterolemia: Status: Chronic Asessment and Plan: Medication unchanged from admission. (6) Gastroesophageal reflux disease with esophagitis: Status: Chronic Asessment and Plan: No dyspeptic complaints during hospitalization and no changes made to his chronic PPI. (7) Essential hypertension: Status: Chronic Asessment and Plan: Diuretic held during hospitalization and will be resumed following discharge. Discharge Plan Disposition Patient Disposition: HOME Condition: Good Discharge Details Reason For Visit: DIZZINESS Admit Date/Time: 03/01/18 03:18 Admit Provider: Juan Bowen Attending Provider: Juan Bowen Primary Care Provider: Marie Granado [facility] Course Hospital Course: Mr. Arroyo is a 53-year-old man who was admitted following a violent episode of vomiting diarrhea dizziness pallor transient low blood pressure and low temperature. The symptoms began fairly acutely the evening of presentation. He had no prior URI symptoms, stomach upset, change in bowel pattern. He denies any known ill exposures, unusual food intake or travel history. No recent skin rashes or skin cuts. No dysuria. No known fevers. No chills. He had a unrevealing initial physical exam. Laboratory studies notable for the absence of any infiltrate on chest x-ray, unremarkable urinalysis, no acute ischemic changes on ECG. He did have an elevated lactate. Blood cultures were drawn and he was given a single dose of ceftriaxone initially and then admitted to the ICU. In the ICU he had initially slightly low blood pressures and his diuretic was held then, with continued fluid resuscitation, blood pressures went into the 140 and 150 systolic range. His troponins remain below the level of detection. He had no further nausea vomiting or diarrhea and tolerated 2 meals with no exacerbation of symptoms. He had no further dizziness. He had no complaints of breathing trouble or chest discomfort. Blood cultures were repeated after his first dose of antibiotics. He received no further antibiotic dosages. He was never febrile. His lactic acidemia improved. His anion gap resolved. Discussion was held with the patient regarding continued observation in the hospital pending further time for blood culture growth versus discharge home with self monitoring of temperature and symptoms. He is certainly capable of self monitoring and it is his preference to be discharged. Two sets of blood cultures drawn during this hospitalization, first set before ceftriaxone administered and the second several hours after, results will need to be followed up. No changes were made to any of his chronic home medications. Home Meds and New Rx's Prescriptions: Continued lamotrigine 25 mg tablet 50 mg PO DAILY RF: 0 levomefolate calcium [L-Methylfolate] 15 mg tablet 15 mg PO DAILY RF: 0 Prilosec OTC 20 MG tablet,delayed release (DR/EC) 1 tab PO DAILY Qty: 90 RF: 2 fluticasone 16 GM spray,suspension 2 spry NS DAILY Qty: 1 RF: 4 metformin 500 MG tablet 500 mg PO DAILY Qty: 90 RF: 4 hydrochlorothiazide 25 MG tablet 1 tab PO QAM Qty: 90 RF: 4 Rosuvastatin Calcium 40 MG tablet 40 mg PO DAILY Qty: 90 RF: 4 sertraline [Zoloft] 100 mg tablet 200 mg PO DAILY Qty: 60 RF: 12 Discharge Instructions Additional Instructions: If you are feeling hot or cold, check your temperature. If you develop fever (temperature greater than 100), nausea vomiting or diarrhea, call your primary care provider or return to the emergency room. Referrals: Marie Graando MD [Primary Care Provider] - (Keep your scheduled appointment with Dr. Granado for August 21, 2018, call the office sooner if you have intercurrent problems.) Activity:: Activity as Tolerated Equipment/Supplies:: No Equipment Needed Diet:: Carb Counting Discharge Orders Discharge Orders: Discharge Order (Routine); Ordered 03/01/18 Ordered By: Francisco Caban DS: Data Vitals/I&O Vitals and I&O: Vital Signs Temperature 37.1 C 03/01/18 14:44 Temperature Source Temporal Artery Scan 03/01/18 14:44 Pulse 79 03/01/18 14:36 Pulse 81 03/01/18 14:36 Respiratory Rate 22 03/01/18 14:36 Respiratory Effort Non-Labored 03/01/18 12:15 Respiratory Depth Normal 03/01/18 12:15 Respiratory Pattern Normal 03/01/18 12:15 Blood Pressure 152/70 H 03/01/18 14:36 Blood Pressure Mean 86 03/01/18 14:36 Blood Pressure Position Supine 03/01/18 12:15 Pulse Oximetry 95 03/01/18 14:44 Oxygen Delivery Method Room Air 03/01/18 14:44 Oxygen Flow Rate 0 03/01/18 14:44 Pain Level 0 03/01/18 14:44 Intake & Output 02/28/18 03/01/18 03/01/18 23:59 11:59 23:59 Intake Total 3400.000 / 3910.000 510 / 3910.000 Output Total 825 / 825 Balance 2575.000 / 3085.000 510 / 3085.000 Weight 130 kg 127.7 kg Intake: IV 3160.000 / 3170.000 10 / 3170.000 Oral 240 / 740 500 / 740 Output: Urine 825 / 825 Other: Urine Color Yellow Urine Appearance Clear Urine Odor None Comment No urge to void at this time. Pt voided 825 cc clear yellow this shift. Voiding Methods Urinal Labs on day of discharge: Labs from last 24 hours 03/01/18 03/01/18 03/01/18 Unknown 06:40 06:40 WBC 9.85 RBC 4.55 Hgb 13.3 L Hct 38.5 L MCV 84.6 MCH 29.2 MCHC 34.5 RDW 13.3 Plt Count 190 MPV 10.4 Immature Gran % 0.3 Neutrophils % 79.3 Lymphocytes % 11.5 Monocytes % 8.4 Eosinophils % 0.1 Basophils % 0.4 Absolute Neutrophils 7.81 H Absolute Lymphocytes 1.13 L Absolute Monocytes 0.83 H Absolute Eosinophils 0.01 Absolute Basophils 0.04 Sample Site Cancelled pCO2 Cancelled pO2 Cancelled O2 Saturation Cancelled ABG pH Cancelled ABG HCO3 Cancelled ABG Total CO2 Cancelled ABG Base Excess Cancelled Oxygen Liter Flow Cancelled FiO2 Cancelled Sodium Potassium Chloride Carbon Dioxide Anion Gap BUN Creatinine Estimated GFR/1.73 m2 Glucose Lactate 1.7 H Calcium Magnesium Total Bilirubin AST ALT Alkaline Phosphatase Troponin I Total Protein Albumin Urine Color Urine Clarity Urine pH Ur Specific [place] Urine Protein Urine Ketones Urine Blood Urine Nitrite Urine Bilirubin Urine Urobilinogen Ur Leukocyte Esterase Urine Glucose 03/01/18 03/01/18 03/01/18 06:40 02:30 00:10 WBC 11.78 H RBC 5.20 Hgb 15.1 Hct 43.8 MCV 84.2 MCH 29.0 MCHC 34.5 RDW 13.1 Plt Count 211 MPV 10.5 Immature Gran % 0.4 Neutrophils % 78.4 Lymphocytes % 13.1 Monocytes % 7.3 Eosinophils % 0.6 Basophils % 0.2 Absolute Neutrophils 9.24 H Absolute Lymphocytes 1.54 Absolute Monocytes 0.86 H Absolute Eosinophils 0.07 Absolute Basophils 0.02 Sample Site pCO2 pO2 O2 Saturation ABG pH ABG HCO3 ABG Total CO2 ABG Base Excess Oxygen Liter Flow FiO2 Sodium 141 Potassium 3.7 Chloride 104 Carbon Dioxide 29.2 Anion Gap 7.8 BUN 13 Creatinine 0.91 Estimated GFR/1.73 m2 >= 60.00 Glucose 155 H D Lactate Calcium 8.2 L Magnesium 2.0 Total Bilirubin AST ALT Alkaline Phosphatase Troponin I < 0.02 Total Protein Albumin Urine Color Yellow Urine Clarity Clear Urine pH 6.0 Ur Specific [place] 1.025 Urine Protein Negative Urine Ketones 40 H Urine Blood Negative Urine Nitrite Negative Urine Bilirubin Negative Urine Urobilinogen 0.2 Ur Leukocyte Esterase Negative Urine Glucose 250 H 03/01/18 03/01/18 00:10 00:10 WBC RBC Hgb Hct MCV MCH MCHC RDW Plt Count MPV Immature Gran % Neutrophils % Lymphocytes % Monocytes % Eosinophils % Basophils % Absolute Neutrophils Absolute Lymphocytes Absolute Monocytes Absolute Eosinophils Absolute Basophils Sample Site pCO2 pO2 O2 Saturation ABG pH ABG HCO3 ABG Total CO2 ABG Base Excess Oxygen Liter Flow FiO2 Sodium 141 Potassium 3.1 L Chloride 100 Carbon Dioxide 25.5 Anion Gap 15.5 H BUN 17 Creatinine 1.24 Estimated GFR/1.73 m2 >= 60.00 Glucose 238 H Lactate 4.9 H Calcium 9.5 Magnesium 1.7 L Total Bilirubin 0.6 AST 34 ALT 53 Alkaline Phosphatase 87 Troponin I < 0.02 Total Protein 7.7 Albumin 4.4 Urine Color Urine Clarity Urine pH Ur Specific [place] Urine Protein Urine Ketones Urine Blood Urine Nitrite Urine Bilirubin Urine Urobilinogen Ur Leukocyte Esterase Urine Glucose 03/01/18 09:43 Blood Blood Culture - Pending 03/01/18 09:30 Blood Blood Culture - Pending 03/01/18 01:03 Blood Blood Culture - Pending 03/01/18 00:15 Blood Blood Culture - Pending Preliminary micro results at discharge 03/01/18 09:43 Blood Culture - Pending Blood 03/01/18 09:30 Blood Culture - Pending Blood 03/01/18 01:03 Blood Culture - Pending Blood 03/01/18 00:15 Blood Culture - Pending Blood [facility] Medical History Tubular adenoma of colon (Chronic) Depression (Chronic) DM (diabetes mellitus) Essential hypertension GERD (gastroesophageal reflux disease) Surgical History H/O colonoscopy (Resolved 02/08/18) Endoscopic Ethmoid (A&P) (~2003) Vasectomy Family History Mother Personal history of malignant neoplasm Mental disorder Father Diabetes Essential hypertension Personal history of malignant neoplasm Heart disease Hyperlipidemia Stroke Sister No problems noted. 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 Quit tobacco 21 years ago. Reports 2 drinks approximately 3 times per week. Denies any illicit drug use.
== END 2018-03-01 16:19 | disposition home or self-care (01) | DRG 392 ==
LOC: ER 03-01 03:03 → ICU 03-01 15:10
PROVIDERS: Admitting Provider Internal Medicine; Emergency Provider Emergency Medicine; PCP Family Medicine; Visit Provider Internal Medicine
DX: R11.2 Nausea with vomiting, unspecified (principal); E87.2 Acidosis; R19.7 Diarrhea, unspecified; R42 Dizziness and giddiness; E11.9 Type 2 diabetes mellitus without complications; E78.00 Pure hypercholesterolemia, unspecified; K21.9 Gastro-esophageal reflux disease without esophagitis; I10 Essential (primary) hypertension; R68.0 Hypothermia, not associated with low environmental temperature; Z79.84 Long term (current) use of oral hypoglycemic drugs; Z23 Encounter for immunization
CPT/HCPCS: 36415; 80048; 80053; 87040; 87449; 93005; 96361; 96365; 96366; 96368; 99223; 99238; 99285; J1650; 71046; 81003; 83605; 83735; 84484; 85025; 93010; J0696; J3480

== ENCOUNTER 2018-08-20 10:53 | Outpatient (CLI) | payer BC, SELFPAY ==
[2018-08-20 11:45] LABS: Hemoglobin A1C 7.2 % (4.5-6.2)
[2018-08-20 13:24] LABS: ALT 50 U/L (12-78); AST 32 U/L (15-37); Alkaline Phosphatase 75 U/L (46-116); Anion Gap 7.5 mmol/L (3-11); BUN 5 mg/dL (7-18); Bilirubin, Total 0.8 mg/dL (0.2-1.0); CO2 31.5 mmol/L (21.0-32.0); CREATININE 1.04 mg/dL (0.70-1.30); Calcium 9.1 mg/dL (8.5-10.1); Chloride 103 mmol/L (98-107); Glucose 132 mg/dL (70-100); Potassium 4.3 mmol/L (3.5-5.1); Sodium 142 mmol/L (136-145); Total Protein 6.7 g/dL (6.4-8.2)
[2018-08-20 15:23] LABS: COMMENT (LAB VIEW ONLY) 271.85 mg/dL; Microalb ug/mg Crea 6.4 ug/mg Cr
== END 2018-08-20 11:13 ==
PROVIDERS: PCP Family Medicine; Visit Provider Family Medicine
DX: E11.9 Type 2 diabetes mellitus without complications (principal)
CPT/HCPCS: 36415; 80053; 82043; 82570; 83036

== ENCOUNTER 2019-09-01 21:58 | Outpatient (REF) | payer BC, SELFPAY ==
[2019-09-01 22:10] LABS: ALT 44 U/L (16-63); AST 35 U/L (15-37); Albumin 4.3 g/dL (3.4-5.0); Alkaline Phosphatase 84 U/L (46-116); Anion Gap 7.7 mmol/L (3-11); BUN 13 mg/dL (7-18); Bilirubin, Total 0.8 mg/dL (0.2-1.0); CO2 31.3 mmol/L (21.0-32.0); CREATININE 1.09 mg/dL (0.70-1.30); Calcium 9.4 mg/dL (8.5-10.1); Calculated LDL 90 mg/dL (<100); Chloride 102 mmol/L (98-107); Cholesterol 176 mg/dL (<200); Glucose 138 mg/dL (74-106); HDL Cholesterol 60 mg/dL (40-60); Magnesium 2.1 mg/dL (1.8-2.4); Potassium 3.8 mmol/L (3.5-5.1); Sodium 141 mmol/L (136-145); Total Protein 7.1 g/dL (6.4-8.2); Triglyceride 132 mg/dL (<150)
== END 2019-09-01 22:18 ==
LOC: LBN 21:58
PROVIDERS: PCP Family Medicine; Visit Provider Family Medicine
DX: E11.9 Type 2 diabetes mellitus without complications (principal); E83.42 Hypomagnesemia
CPT/HCPCS: 80053; 80061; 83036; 83735

== ENCOUNTER 2019-11-03 08:44 | Outpatient (CLI) | payer BC, SELFPAY ==
[2019-11-03 12:45] LABS: Abs Immature Grans 0.01 10^3/uL (0.0-0.06); Absolute Basophil Count 0.04 10^3/uL (0.0-0.2); Absolute Eosinophil Count 0.18 10^3/uL (0.0-0.7); Absolute Lymphocyte Count 1.11 10^3/uL (1.2-3.4); Absolute Monocyte Count 0.69 10^3/uL (0.1-0.8); Absolute Neutrophil Count 3.44 10^3/uL (1.2-6.7); Basophils % 0.7; Eosinophils % 3.3; HCT 43.4 % (40.0-50.0); HGB 14.2 g/dL (13.5-17.5); Immature Grans % 0.2; Lymphocytes % 20.3; MCH 28.7 pg (27.0-33.0); MCHC 32.7 % (32.0-36.0); MCV 87.7 fL (80-95); MPV 10.8 fL (8.0-11.0); Monocytes % 12.6; Neutrophils % 62.9; Nucleated RBC 0 %; Platelet Count 214 10^3/uL (130-400); RBC 4.95 10^6/uL (4.36-5.78); RDW 12.7 % (11.8-14.1); RDW-SD 40.9 fL; WBC 5.47 10^3/uL (4.4-10.8)
[2019-11-03 13:05] LABS: ALT 41 U/L (16-63); AST 32 U/L (15-37); Albumin 4.2 g/dL (3.4-5.0); Alkaline Phosphatase 72 U/L (46-116); Anion Gap 8.5 mmol/L (3-11); BUN 15 mg/dL (7-18); CO2 28.5 mmol/L (21.0-32.0); CREATININE 1.05 mg/dL (0.70-1.30); Calcium 9.5 mg/dL (8.5-10.1); Chloride 105 mmol/L (98-107); Glucose 151 mg/dL (74-106); Sodium 142 mmol/L (136-145); TSH 1.46 uIU/mL (0.36-3.74)
[2019-11-03 13:25] LABS: COMMENT (LAB VIEW ONLY) 240.07 mg/dL; Microalb ug/mg Crea 6.5 ug/mg Cr
== END 2019-11-03 09:04 ==
PROVIDERS: PCP Family Medicine; Visit Provider Family Medicine
DX: E11.9 Type 2 diabetes mellitus without complications (principal); R42 Dizziness and giddiness
CPT/HCPCS: 36415; 80053; 82043; 82570; 84443; 85025

== ENCOUNTER 2020-01-29 05:08 | Outpatient (CLI) | payer BC, SELFPAY ==
[2020-01-30 21:42] LABS: SARS-CoV-2 RNA Not Detected (NotDetected); SARS-CoV-2 RNA Source Nasal/Nares
== END 2020-01-29 05:28 ==
PROVIDERS: PCP Family Medicine; Visit Provider Nurse Practitioner Family
DX: Z20.828 Contact with and (suspected) exposure to other viral communicable diseases (principal)
CPT/HCPCS: U0003

== ENCOUNTER 2021-01-27 09:14 | Outpatient (CLI) | payer BC, SELFPAY ==
[2021-01-27 09:29] LABS: Source Nasal/Nares
[2021-01-27 16:28] LABS: COVID-19 PCR Negative (Negative)
== END 2021-01-27 09:15 | disposition home or self-care (01) ==
PROVIDERS: PCP Family Medicine; Visit Provider Family Medicine
DX: Z20.822 Contact with and (suspected) exposure to COVID-19 (principal)
CPT/HCPCS: 87635

== ENCOUNTER 2021-09-15 04:18 | Outpatient (CLI) | payer BC, SELFPAY ==
[2021-09-15 12:37] LABS: Abs Immature Grans 0.08 10^3/uL (0.0-0.06); Absolute Basophil Count 0.05 10^3/uL (0.0-0.2); Absolute Eosinophil Count 0.06 10^3/uL (0.0-0.7); Absolute Lymphocyte Count 1.35 10^3/uL (1.2-3.4); Absolute Monocyte Count 0.81 10^3/uL (0.1-0.8); Absolute Neutrophil Count 4.07 10^3/uL (1.2-6.7); Basophils % 0.8; Eosinophils % 0.9; HCT 46.8 % (40.0-50.0); HGB 15.5 g/dL (13.5-17.5); Immature Grans % 1.2; MCH 28.6 pg (27.0-33.0); MCHC 33.1 % (32.0-36.0); MCV 86 fL (80-95); MPV 11.1 fL (8.0-11.0); Monocytes % 12.6; Neutrophils % 63.5; Platelet Count 197 10^3/uL (130-400); RBC 5.42 10^6/uL (4.36-5.78); RDW 12.1 % (11.8-14.1); RDW-SD 38.5 fL; WBC 6.42 10^3/uL (4.4-10.8)
[2021-09-15 12:43] LABS: COMMENT (LAB VIEW ONLY) 194.43 mg/dL; Microalb ug/mg Crea 23.4 ug/mg Cr
[2021-09-15 12:56] LABS: ALT 31 U/L (16-63); AST 18 U/L (15-37); Albumin 4.1 g/dL (3.4-5.0); Alkaline Phosphatase 111 U/L (46-116); Anion Gap 8.6 mmol/L (3-11); BUN 18 mg/dL (7-18); Bilirubin, Total 0.7 mg/dL (0.2-1.0); CO2 30.4 mmol/L (21.0-32.0); CREATININE 1.2 mg/dL (0.70-1.30); Calcium 9.4 mg/dL (8.5-10.1); Chloride 96 mmol/L (98-107); Glucose 383 mg/dL (74-106); Potassium 3.6 mmol/L (3.5-5.1); Sodium 135 mmol/L (136-145); TSH (W/Ref FT4) 1.31 uIU/mL (0.36-3.74); Total Protein 7.6 g/dL (6.4-8.2)
[2021-09-15 13:14] LABS: Calculated LDL 102 mg/dL (<100); Cholesterol 181 mg/dL (<200); HDL Cholesterol 49 mg/dL (40-60); Triglyceride 153 mg/dL (<150)
[2021-09-15 22:24] LABS: PSA, Screening 0.7 ng/mL (<=3.5)
[2021-09-16 09:57] LABS: HIV-1/2 Ag & Ab Screen Negative (Negative)
[2021-09-16 10:20] LABS: Hepatitis C Ab w Rflx HCV PCR Negative (Negative)
== END 2021-09-15 04:19 | disposition home or self-care (01) ==
LOC: LOS 04:18
PROVIDERS: PCP Family Medicine; Visit Provider Family Medicine
DX: E78.5 Hyperlipidemia, unspecified (principal); E11.9 Type 2 diabetes mellitus without complications; R53.83 Other fatigue; I10 Essential (primary) hypertension; Z12.5 Encounter for screening for malignant neoplasm of prostate; Z11.59 Encounter for screening for other viral diseases; Z11.4 Encounter for screening for human immunodeficiency virus [HIV]
CPT/HCPCS: 36415; 80053; 80061; 84153; 86803; 87389; 82043; 82570; 83036; 84443; 85025